=== PATIENT | female | born 1950 | race Two or more races ===

== ENCOUNTER 2023-11-11 18:50 | Emergency (ER) | payer MEDICARE, OTHER ==
[~2023-11-11] VITALS: Ht 154.9 cm; Wt 83.9 kg
[2023-11-11] MEDS: CYCLOBENZAPRINE HCL 10 MG TABLET PO ONE (19:37)
[2023-11-11] MEDS: HYDROCODONE/APAP 5-325MG TABLET PO ONE (19:37)
[2023-11-11] MEDS ORDERED: CYCL5TAB PO (20:30)
[2023-11-11 20:42] VITALS: BP 142/75; O2SAT 97
== END 2023-11-11 20:42 | disposition home or self-care (01) ==
LOC: ER 18:50
DX: S39.012A Strain of muscle, fascia and tendon of lower back, initial encounter (principal); R03.0 Elevated blood-pressure reading, without diagnosis of hypertension; R11.2 Nausea with vomiting, unspecified; R19.7 Diarrhea, unspecified; K59.00 Constipation, unspecified; N18.9 Chronic kidney disease, unspecified; Z86.73 Personal history of transient ischemic attack (TIA), and cerebral infarction without residual deficits; Z98.890 Other specified postprocedural states; Z79.899 Other long term (current) drug therapy; X58.XXXA Exposure to other specified factors, initial encounter; Y93.89 Activity, other specified; Y92.89 Other specified places as the place of occurrence of the external cause; Y99.8 Other external cause status
CPT/HCPCS: 72131; A4606; A4663